=== PATIENT | female | born 1985 | race Caucasian/White ===

== ENCOUNTER → 2017-01-10 | Outpatient (CLI) | payer OTHER | LOC: FIMAGING 12:05 | PROVIDERS: ATTEND Student in an Organized Health Care Education/Training Program | DX: Z34.82 Encounter for supervision of other normal pregnancy, second trimester (principal); Z87.51 Personal history of pre-term labor; Z3A.16 16 weeks gestation of pregnancy ==

== ENCOUNTER → 2017-01-24 | Outpatient (CLI) | payer OTHER | LOC: FIMAGING 11:46 | PROVIDERS: ATTEND Student in an Organized Health Care Education/Training Program | DX: Z34.82 Encounter for supervision of other normal pregnancy, second trimester (principal); Z87.51 Personal history of pre-term labor; Z3A.18 18 weeks gestation of pregnancy ==